=== PATIENT | male | born 1960 | race Two or more races ===

== ENCOUNTER 2020-11-16 16:18 | Inpatient (IN) | payer OTHER ==
[~2020-11-16] VITALS: Ht 177.8 cm; Wt 86.0 kg
[2020-11-16 18:34] LABS: Basophils # (auto) 0 10 ^3/uL (0-0.2); Basophils % (auto) 0.6 % (0.0-2.0); Eosinophils # (auto) 0.1 10 ^3/uL (0-0.8); Eosinophils % (auto) 1.6 % (0.0-7.0); Hematocrit 40.7 % (41.0-53.0); Lymphocytes # (auto) 0.9 10 ^3/uL (0.4-5.4); Lymphocytes % (auto) 19.1 % (10.0-50.0); Mean Corpuscular Hemoglobin 31.8 pg (28.0-32.0); Mean Corpuscular Hgb Conc. 34.5 g/dL (32.0-36.0); Mean Corpuscular Volume 92.3 fL (80.0-100.0); Monocytes # (auto) 0.6 10 ^3/uL (0-1.3); Monocytes % (auto) 12.1 % (0.0-12.0); Neutrophils # (auto) 3.2 10 ^3/uL (1.6-8.6); Neutrophils % (auto) 66.6 % (37.0-80.0); Nucleated Red Blood Cells % 0.3 %; Platelet Count (auto) 214 10^3/uL (140-450); Red Blood Cells 4.41 10^6/uL (4.5-5.90); Red Cell Distribution Width 13.6 % (11.8-14.3); White Blood Cell 4.8 10^3/uL (4.4-10.8)
[2020-11-16 18:57] LABS: Albumin 3.7 g/dL (3.4-5.0); Calcium 8.4 mg/dL (8.5-10.1); Potassium 4.3 mmol/L (3.5-5.1)
[2020-11-16 18:59] LABS: BUN/Creatinine Ratio 14.4
[2020-11-16 19:01] LABS: Bilirubin, Total 0.6 mg/dL (0.2-1.0); Total Protein 8.5 g/dL (6.4-8.2)
[2020-11-16] MEDS ORDERED: IOHEXOL 300 MG/ML 100ML BOTTLE IJ ONE (19:42)
[2020-11-16] MEDS ORDERED: VANCOMYCIN 1GM/250ML 250 ML IV ONE (23:00)
[2020-11-17] MEDS: methylPREDNISolone SOD SUCC 125 MG/2 ML VL IV SCH ×3 (01:02→21:08)
[2020-11-17 05:00] VITALS: BP 144/83
[2020-11-17 05:06] VITALS: BP 144/83
[2020-11-17] MEDS: HYDROcodone-ACET 10/325MG TAB PO PRN (06:53)
[2020-11-17 09:00] VITALS: BP 120/83
[2020-11-17] MEDS ORDERED: VANCOMYCIN PER PHARMACY 0 MG IV SCH (10:00)
[2020-11-17] MEDS ORDERED: VANCOMYCIN 1GM/250ML 250 ML IV SCH (10:00)
[2020-11-17] MEDS: NAPROXEN 500 MG TAB PO SCH ×2 (10:34→21:09)
[2020-11-17 13:00] VITALS: BP 121/73
[2020-11-17 13:19] LABS: INR 1.09 (0.9-1.15)
[2020-11-17 13:33] LABS: Partial Thromboplastin Time 25.6 sec (23.0-31.2)
[2020-11-17] MEDS: VANCOMYCIN 1GM/250ML 250 ML IV SCH (14:02)
[2020-11-17 14:29] LABS: Urine Bacteria NONE SEEN /hpf (None Seen); Urine Blood Negative /uL (Negative); Urine Specific Gravity 1.029 (1.001-1.035); Urine WBC 11 /hpf (0 - 3)
[2020-11-17 17:00] VITALS: BP 136/82
[2020-11-17] MEDS: TAMSULOSIN HYDROCHLORIDE 0.4 MG CAP PO SCH (19:23)
[2020-11-17] MEDS: ALUM & MAG HYDROX-SIMETH LIQ(MAALOX) 30 ML PO PRN (20:17)
[2020-11-17] MEDS: CIPROFLOXACIN HCL 500 MG TAB PO SCH (21:09)
[2020-11-17 22:00] VITALS: BP 140/83
[2020-11-18] MEDS: VANCOMYCIN 1GM/250ML 250 ML IV SCH ×3 (01:32→22:19)
[2020-11-18 05:00] VITALS: BP 133/85
[2020-11-18] MEDS: HYDROcodone-ACET 10/325MG TAB PO PRN ×2 (08:19→22:20)
[2020-11-18 09:00] VITALS: BP 119/71
[2020-11-18] MEDS: methylPREDNISolone SOD SUCC 125 MG/2 ML VL IV SCH (10:15)
[2020-11-18] MEDS: NAPROXEN 500 MG TAB PO SCH ×2 (10:16→21:32)
[2020-11-18] MEDS: CIPROFLOXACIN HCL 500 MG TAB PO SCH ×2 (10:16→21:32)
[2020-11-18] MEDS: PANTOPRAZOLE 40 MG TAB PO SCH (10:16)
[2020-11-18] MEDS: ENOXAPARIN SOD 40 MG/0.4 ML SYRINGE SC SCH (10:17)
[2020-11-18 13:00] VITALS: BP 105/68
[2020-11-18 17:17] VITALS: BP 129/57
[2020-11-18] MEDS: TAMSULOSIN HYDROCHLORIDE 0.4 MG CAP PO SCH (17:53)
[2020-11-18] MEDS: methylPREDNISolone SOD SUCC 40 MG/ML VL IV SCH (21:32)
[2020-11-18 22:00] VITALS: BP 120/66
[2020-11-19 05:00] VITALS: BP 114/70
[2020-11-19 07:12] LABS: Basophils # (auto) 0 10 ^3/uL (0-0.2); Basophils % (auto) 0.1 % (0.0-2.0); Eosinophils # (auto) 0 10 ^3/uL (0-0.8); Hematocrit 41.4 % (41.0-53.0); Hemoglobin 14.3 g/dL (13.5-17.5); Lymphocytes # (auto) 1.1 10 ^3/uL (0.4-5.4); Lymphocytes % (auto) 10.9 % (10.0-50.0); Mean Corpuscular Hemoglobin 32.5 pg (28.0-32.0); Mean Corpuscular Hgb Conc. 34.5 g/dL (32.0-36.0); Mean Corpuscular Volume 94.2 fL (80.0-100.0); Monocytes # (auto) 0.4 10 ^3/uL (0-1.3); Monocytes % (auto) 3.4 % (0.0-12.0); Neutrophils % (auto) 85.6 % (37.0-80.0); Platelet Count (auto) 252 10^3/uL (140-450); Red Cell Distribution Width 13.4 % (11.8-14.3); White Blood Cell 10.5 10^3/uL (4.4-10.8)
[2020-11-19] MEDS: VANCOMYCIN 1GM/250ML 250 ML IV SCH ×2 (08:30→17:28)
[2020-11-19 09:00] VITALS: BP 119/76
[2020-11-19] MEDS ORDERED: GADOTERATE MEG 10 MMOL/20ml INJ (0.5MMOL/ml) IV ONE (09:54)
[2020-11-19] MEDS: methylPREDNISolone SOD SUCC 40 MG/ML VL IV SCH ×2 (11:52→22:15)
[2020-11-19] MEDS: CIPROFLOXACIN HCL 500 MG TAB PO SCH ×2 (11:53→22:16)
[2020-11-19] MEDS: NAPROXEN 500 MG TAB PO SCH ×2 (11:53→22:16)
[2020-11-19] MEDS: PANTOPRAZOLE 40 MG TAB PO SCH (11:53)
[2020-11-19] MEDS: ENOXAPARIN SOD 40 MG/0.4 ML SYRINGE SC SCH (11:54)
[2020-11-19 12:23] VITALS: BP 111/80
[2020-11-19 16:24] VITALS: BP 132/79
[2020-11-19] MEDS: HYDROcodone-ACET 10/325MG TAB PO PRN ×2 (17:08→22:17)
[2020-11-19] MEDS: TAMSULOSIN HYDROCHLORIDE 0.4 MG CAP PO SCH (17:31)
[2020-11-19 22:00] VITALS: BP 136/84
[2020-11-20] VITALS (13 sets, daily range): BP systolic 120–141; BP diastolic 71–91
[2020-11-20] MEDS: VANCOMYCIN 1GM/250ML 250 ML IV SCH ×3 (04:51→23:42)
[2020-11-20] MEDS: ENOXAPARIN SOD 40 MG/0.4 ML SYRINGE SC SCH (10:00)
[2020-11-20] MEDS: methylPREDNISolone SOD SUCC 40 MG/ML VL IV SCH (10:13)
[2020-11-20] MEDS: CIPROFLOXACIN HCL 500 MG TAB PO SCH ×2 (10:13→23:41)
[2020-11-20] MEDS: DexAMETHasone SOD PHOS 4 MG/1ML SDV INJ IV SCH ×2 (10:13→23:41)
[2020-11-20] MEDS: PANTOPRAZOLE 40 MG TAB PO SCH (10:14)
[2020-11-20] MEDS: NAPROXEN 500 MG TAB PO SCH ×2 (10:14→23:41)
[2020-11-20] MEDS: ALUM & MAG HYDROX-SIMETH LIQ(MAALOX) 30 ML PO PRN (10:16)
[2020-11-20] MEDS: OXYCODONE W/ ACETAMINOPHEN 5/325MG TABLET PO PRN ×2 (13:54→19:31)
[2020-11-20] MEDS ORDERED: GELATIN 1 SPONGE SIZE 50 TOP ONE (14:50)
[2020-11-20] MEDS ORDERED: LIDOCAINE 2%HCL (LOCAL ANESTH.) INJ 20ML MDV ONE ×2 (14:50)
[2020-11-20] MEDS ORDERED: IOHEXOL 300 MG/ML 100ML BOTTLE IJ ONE (14:52)
[2020-11-20] MEDS ORDERED: fentaNYL CITRATE 100 MCG/2 ML VL IV ONE (15:00)
[2020-11-20] MEDS ORDERED: MIDAZOLAM HCL 1MG/1ML-2 ML VIAL IV ONE (15:00)
[2020-11-20] MEDS: TAMSULOSIN HYDROCHLORIDE 0.4 MG CAP PO SCH (17:33)
[2020-11-21] MEDS: OXYCODONE W/ ACETAMINOPHEN 5/325MG TABLET PO PRN ×4 (06:55→20:58)
[2020-11-21 08:28] VITALS: BP 133/84
[2020-11-21] MEDS: PANTOPRAZOLE 40 MG TAB PO SCH (10:11)
[2020-11-21] MEDS: DexAMETHasone SOD PHOS 4 MG/1ML SDV INJ IV SCH ×2 (10:11→21:52)
[2020-11-21] MEDS: CIPROFLOXACIN HCL 500 MG TAB PO SCH ×2 (10:11→21:52)
[2020-11-21] MEDS: NAPROXEN 500 MG TAB PO SCH ×2 (10:11→21:53)
[2020-11-21] MEDS: ENOXAPARIN SOD 40 MG/0.4 ML SYRINGE SC SCH (10:12)
[2020-11-21] MEDS: VANCOMYCIN 1GM/250ML 250 ML IV SCH ×2 (10:14→21:52)
[2020-11-21] MEDS ORDERED: GADOTERATE MEG 7.5 MMOL/15ml INJ (0.5MMOL/ml) IV ONE (11:30)
[2020-11-21 12:32] VITALS: BP 144/83
[2020-11-21 16:33] VITALS: BP 127/87
[2020-11-21] MEDS: TAMSULOSIN HYDROCHLORIDE 0.4 MG CAP PO SCH (18:02)
[2020-11-21 22:24] VITALS: BP 113/77
[2020-11-22] MEDS: VANCOMYCIN 1GM/250ML 250 ML IV SCH ×3 (00:05→16:32)
[2020-11-22] MEDS: DexAMETHasone SOD PHOS 4 MG/1ML SDV INJ IV SCH ×3 (00:05→22:15)
[2020-11-22] MEDS: OXYCODONE W/ ACETAMINOPHEN 5/325MG TABLET PO PRN ×3 (01:54→13:38)
[2020-11-22 05:24] VITALS: BP 112/72
[2020-11-22 08:41] VITALS: BP 114/74
[2020-11-22] MEDS: CIPROFLOXACIN HCL 500 MG TAB PO SCH ×2 (10:24→22:15)
[2020-11-22] MEDS: NAPROXEN 500 MG TAB PO SCH ×2 (10:24→22:15)
[2020-11-22] MEDS: PANTOPRAZOLE 40 MG TAB PO SCH (10:24)
[2020-11-22] MEDS: ENOXAPARIN SOD 40 MG/0.4 ML SYRINGE SC SCH (10:25)
[2020-11-22 12:35] VITALS: BP 129/82
[2020-11-22 17:00] VITALS: BP 128/81
[2020-11-22] MEDS: TAMSULOSIN HYDROCHLORIDE 0.4 MG CAP PO SCH (18:05)
[2020-11-22 22:00] VITALS: BP 120/76
[2020-11-23] MEDS: VANCOMYCIN 1GM/250ML 250 ML IV SCH ×3 (02:28→21:52)
[2020-11-23 05:00] VITALS: BP 116/69
[2020-11-23] MEDS: ENOXAPARIN SOD 40 MG/0.4 ML SYRINGE SC SCH (08:48)
[2020-11-23] MEDS: CIPROFLOXACIN HCL 500 MG TAB PO SCH ×2 (08:48→21:52)
[2020-11-23] MEDS: DexAMETHasone SOD PHOS 4 MG/1ML SDV INJ IV SCH ×2 (08:48→21:52)
[2020-11-23] MEDS: PANTOPRAZOLE 40 MG TAB PO SCH (08:49)
[2020-11-23] MEDS: NAPROXEN 500 MG TAB PO SCH ×2 (08:49→21:53)
[2020-11-23 09:00] VITALS: BP 133/75
[2020-11-23 10:56] LABS: Basophils # (auto) 0 10 ^3/uL (0-0.2); Basophils % (auto) 0.3 % (0.0-2.0); Eosinophils # (auto) 0 10 ^3/uL (0-0.8); Eosinophils % (auto) 0.1 % (0.0-7.0); Hematocrit 43.9 % (41.0-53.0); Hemoglobin 14.6 g/dL (13.5-17.5); Lymphocytes # (auto) 1.1 10 ^3/uL (0.4-5.4); Mean Corpuscular Hemoglobin 30.9 pg (28.0-32.0); Mean Corpuscular Hgb Conc. 33.2 g/dL (32.0-36.0); Mean Corpuscular Volume 92.9 fL (80.0-100.0); Monocytes # (auto) 0.7 10 ^3/uL (0-1.3); Monocytes % (auto) 5.9 % (0.0-12.0); Neutrophils % (auto) 84.7 % (37.0-80.0); Platelet Count (auto) 286 10^3/uL (140-450); Red Blood Cells 4.72 10^6/uL (4.5-5.90); Red Cell Distribution Width 13.4 % (11.8-14.3); White Blood Cell 11.8 10^3/uL (4.4-10.8)
[2020-11-23 11:15] LABS: Albumin 3.2 g/dL (3.4-5.0); Calcium 8.4 mg/dL (8.5-10.1); Potassium 3.8 mmol/L (3.5-5.1)
[2020-11-23 11:20] LABS: BUN/Creatinine Ratio 24.3; Bilirubin, Total 0.6 mg/dL (0.2-1.0)
[2020-11-23] MEDS: METHOCARBAMOL 500 MG TAB PO PRN (11:55)
[2020-11-23 13:00] VITALS: BP 122/74
[2020-11-23 17:00] VITALS: BP 133/80
[2020-11-23] MEDS: OXYCODONE W/ ACETAMINOPHEN 5/325MG TABLET PO PRN ×2 (17:56→23:53)
[2020-11-23] MEDS: TAMSULOSIN HYDROCHLORIDE 0.4 MG CAP PO SCH (17:56)
[2020-11-23 22:00] VITALS: BP 133/76
[2020-11-24 05:03] VITALS: BP 111/69
[2020-11-24] MEDS: VANCOMYCIN 1GM/250ML 250 ML IV SCH ×2 (08:19→17:41)
[2020-11-24 09:00] VITALS: BP 121/81
[2020-11-24] MEDS: DexAMETHasone SOD PHOS 4 MG/1ML SDV INJ IV SCH ×2 (09:25→21:51)
[2020-11-24] MEDS: CIPROFLOXACIN HCL 500 MG TAB PO SCH ×2 (09:25→21:51)
[2020-11-24] MEDS: NAPROXEN 500 MG TAB PO SCH ×2 (09:26→21:51)
[2020-11-24] MEDS: ENOXAPARIN SOD 40 MG/0.4 ML SYRINGE SC SCH (09:26)
[2020-11-24] MEDS: PANTOPRAZOLE 40 MG TAB PO SCH (09:26)
[2020-11-24] MEDS: OXYCODONE W/ ACETAMINOPHEN 5/325MG TABLET PO PRN ×3 (10:16→23:19)
[2020-11-24 13:00] VITALS: BP 123/76
[2020-11-24 17:00] VITALS: BP 115/73
[2020-11-24] MEDS: TAMSULOSIN HYDROCHLORIDE 0.4 MG CAP PO SCH (17:41)
[2020-11-24 22:00] VITALS: BP 123/74
[2020-11-25] MEDS: VANCOMYCIN 1GM/250ML 250 ML IV SCH ×3 (03:51→23:42)
[2020-11-25] MEDS: OXYCODONE W/ ACETAMINOPHEN 5/325MG TABLET PO PRN ×4 (03:52→20:15)
[2020-11-25 05:23] VITALS: BP 121/75
[2020-11-25] MEDS: ENOXAPARIN SOD 40 MG/0.4 ML SYRINGE SC SCH (08:03)
[2020-11-25] MEDS: PANTOPRAZOLE 40 MG TAB PO SCH (08:04)
[2020-11-25 09:00] VITALS: BP 124/84
[2020-11-25] MEDS: DexAMETHasone SOD PHOS 4 MG/1ML SDV INJ IV SCH ×2 (09:21→21:38)
[2020-11-25] MEDS: CIPROFLOXACIN HCL 500 MG TAB PO SCH ×2 (09:21→21:38)
[2020-11-25] MEDS: NAPROXEN 500 MG TAB PO SCH ×2 (09:21→21:39)
[2020-11-25] MEDS ORDERED: LACTULOSE 20Gm/30ML SOLN PO PRN (09:30)
[2020-11-25] MEDS: HYDROCORTISONE ACET 25 MG RECTAL SUPP PR SCH ×2 (10:31→21:39)
[2020-11-25 13:00] VITALS: BP 126/75
[2020-11-25 16:39] VITALS: BP 129/80
[2020-11-25] MEDS: TAMSULOSIN HYDROCHLORIDE 0.4 MG CAP PO SCH (18:51)
[2020-11-25 20:00] VITALS: BP 127/75
[2020-11-26 05:00] VITALS: BP 119/70
[2020-11-26 08:47] VITALS: BP 117/75
[2020-11-26] MEDS: VANCOMYCIN 1GM/250ML 250 ML IV SCH ×2 (10:23→21:28)
[2020-11-26] MEDS: DexAMETHasone SOD PHOS 4 MG/1ML SDV INJ IV SCH ×2 (10:24→21:29)
[2020-11-26] MEDS: CIPROFLOXACIN HCL 500 MG TAB PO SCH ×2 (10:24→21:29)
[2020-11-26] MEDS: PANTOPRAZOLE 40 MG TAB PO SCH (10:24)
[2020-11-26] MEDS: HYDROCORTISONE ACET 25 MG RECTAL SUPP PR SCH ×2 (10:24→21:30)
[2020-11-26] MEDS: ENOXAPARIN SOD 40 MG/0.4 ML SYRINGE SC SCH (10:24)
[2020-11-26] MEDS: NAPROXEN 500 MG TAB PO SCH ×2 (10:25→21:30)
[2020-11-26 13:00] VITALS: BP 110/67
[2020-11-26] MEDS: METHOCARBAMOL 500 MG TAB PO PRN (14:16)
[2020-11-26] MEDS: OXYCODONE W/ ACETAMINOPHEN 5/325MG TABLET PO PRN (14:17)
[2020-11-26 16:58] VITALS: BP 122/80
[2020-11-26] MEDS: TAMSULOSIN HYDROCHLORIDE 0.4 MG CAP PO SCH (17:50)
[2020-11-26 20:00] VITALS: BP 113/73
[2020-11-26 22:00] VITALS: BP 113/73
[2020-11-27 04:42] VITALS: BP 104/68
[2020-11-27] MEDS: OXYCODONE W/ ACETAMINOPHEN 5/325MG TABLET PO PRN ×3 (06:26→19:57)
[2020-11-27] MEDS: VANCOMYCIN 1GM/250ML 250 ML IV SCH ×2 (06:26→16:25)
[2020-11-27 06:59] LABS: Basophils # (auto) 0 10 ^3/uL (0-0.2); Basophils % (auto) 0.1 % (0.0-2.0); Eosinophils # (auto) 0 10 ^3/uL (0-0.8); Eosinophils % (auto) 0.1 % (0.0-7.0); Hematocrit 39.2 % (41.0-53.0); Hemoglobin 13.6 g/dL (13.5-17.5); Lymphocytes # (auto) 1.1 10 ^3/uL (0.4-5.4); Mean Corpuscular Hemoglobin 32.3 pg (28.0-32.0); Mean Corpuscular Hgb Conc. 34.7 g/dL (32.0-36.0); Mean Corpuscular Volume 93.1 fL (80.0-100.0); Monocytes # (auto) 0.6 10 ^3/uL (0-1.3); Monocytes % (auto) 7.7 % (0.0-12.0); Neutrophils # (auto) 6.2 10 ^3/uL (1.6-8.6); Neutrophils % (auto) 78.1 % (37.0-80.0); Platelet Count (auto) 227 10^3/uL (140-450); Red Blood Cells 4.21 10^6/uL (4.5-5.90); Red Cell Distribution Width 13.7 % (11.8-14.3); White Blood Cell 7.9 10^3/uL (4.4-10.8)
[2020-11-27 07:10] LABS: BUN/Creatinine Ratio 27.3; Calcium 8.2 mg/dL (8.5-10.1); Potassium 4.1 mmol/L (3.5-5.1)
[2020-11-27 08:48] VITALS: BP 135/82
[2020-11-27] MEDS: CIPROFLOXACIN HCL 500 MG TAB PO SCH ×2 (09:41→22:41)
[2020-11-27] MEDS: NAPROXEN 500 MG TAB PO SCH ×2 (09:41→22:41)
[2020-11-27] MEDS: DexAMETHasone SOD PHOS 4 MG/1ML SDV INJ IV SCH ×2 (09:41→22:41)
[2020-11-27] MEDS: ENOXAPARIN SOD 40 MG/0.4 ML SYRINGE SC SCH (09:42)
[2020-11-27] MEDS: PANTOPRAZOLE 40 MG TAB PO SCH (09:42)
[2020-11-27] MEDS: HYDROCORTISONE ACET 25 MG RECTAL SUPP PR SCH ×2 (10:00→22:40)
[2020-11-27 13:00] VITALS: BP 123/80
[2020-11-27] MEDS: TAMSULOSIN HYDROCHLORIDE 0.4 MG CAP PO SCH (16:26)
[2020-11-27 16:57] VITALS: BP 141/60
[2020-11-27 22:00] VITALS: BP 133/75
[2020-11-28] MEDS: VANCOMYCIN 1GM/250ML 250 ML IV SCH ×3 (02:13→22:08)
[2020-11-28] MEDS: OXYCODONE W/ ACETAMINOPHEN 5/325MG TABLET PO PRN ×3 (02:32→17:18)
[2020-11-28 05:00] VITALS: BP 116/70
[2020-11-28] MEDS: CIPROFLOXACIN HCL 500 MG TAB PO SCH ×2 (08:57→22:08)
[2020-11-28] MEDS: ENOXAPARIN SOD 40 MG/0.4 ML SYRINGE SC SCH (08:57)
[2020-11-28] MEDS: HYDROCORTISONE ACET 25 MG RECTAL SUPP PR SCH ×2 (08:58→22:09)
[2020-11-28] MEDS: DexAMETHasone SOD PHOS 4 MG/1ML SDV INJ IV SCH ×2 (08:58→22:08)
[2020-11-28] MEDS: PANTOPRAZOLE 40 MG TAB PO SCH (08:58)
[2020-11-28] MEDS: NAPROXEN 500 MG TAB PO SCH ×2 (08:58→22:08)
[2020-11-28 09:00] VITALS: BP 116/71
[2020-11-28] MEDS ORDERED: OMNIPAQUE ORAL SOLN 500ml 12mg/ml PO ONE (10:34)
[2020-11-28 13:00] VITALS: BP 113/75
[2020-11-28] MEDS ORDERED: IOHEXOL 300 MG/ML 100ML BOTTLE IJ ONE (13:00)
[2020-11-28 16:46] VITALS: BP 121/80
[2020-11-28] MEDS: TAMSULOSIN HYDROCHLORIDE 0.4 MG CAP PO SCH (17:18)
[2020-11-28 21:19] VITALS: BP 146/75
[2020-11-28] MEDS: METHOCARBAMOL 500 MG TAB PO PRN (22:40)
[2020-11-29] MEDS: OXYCODONE W/ ACETAMINOPHEN 5/325MG TABLET PO PRN ×4 (04:49→17:59)
[2020-11-29 05:12] VITALS: BP 118/72
[2020-11-29] MEDS: VANCOMYCIN 1GM/250ML 250 ML IV SCH ×2 (08:00→17:59)
[2020-11-29] MEDS: DexAMETHasone SOD PHOS 4 MG/1ML SDV INJ IV SCH ×2 (08:33→22:02)
[2020-11-29] MEDS: CIPROFLOXACIN HCL 500 MG TAB PO SCH ×2 (08:33→22:02)
[2020-11-29] MEDS: NAPROXEN 500 MG TAB PO SCH ×2 (08:34→22:03)
[2020-11-29] MEDS: ENOXAPARIN SOD 40 MG/0.4 ML SYRINGE SC SCH (08:34)
[2020-11-29] MEDS: HYDROCORTISONE ACET 25 MG RECTAL SUPP PR SCH ×3 (08:34→22:00)
[2020-11-29 08:49] VITALS: BP 123/77
[2020-11-29 10:05] LABS: Basophils # (auto) 0 10 ^3/uL (0-0.2); Eosinophils # (auto) 0 10 ^3/uL (0-0.8); Hematocrit 40.2 % (41.0-53.0); Hemoglobin 13.6 g/dL (13.5-17.5); Lymphocytes % (auto) 10.7 % (10.0-50.0); Mean Corpuscular Hemoglobin 31.6 pg (28.0-32.0); Mean Corpuscular Hgb Conc. 33.9 g/dL (32.0-36.0); Mean Corpuscular Volume 93.4 fL (80.0-100.0); Monocytes # (auto) 0.4 10 ^3/uL (0-1.3); Monocytes % (auto) 4.4 % (0.0-12.0); Neutrophils # (auto) 7.7 10 ^3/uL (1.6-8.6); Neutrophils % (auto) 84.9 % (37.0-80.0); Platelet Count (auto) 230 10^3/uL (140-450); Red Blood Cells 4.31 10^6/uL (4.5-5.90); White Blood Cell 9.1 10^3/uL (4.4-10.8)
[2020-11-29 10:13] LABS: INR 1.06 (0.9-1.15); Partial Thromboplastin Time 25.5 sec (23.0-31.2); Potassium 4.1 mmol/L (3.5-5.1)
[2020-11-29 10:20] LABS: Albumin 3.1 g/dL (3.4-5.0); BUN/Creatinine Ratio 27.8; Bilirubin, Total 0.7 mg/dL (0.2-1.0); Total Protein 6.3 g/dL (6.4-8.2)
[2020-11-29 13:00] VITALS: BP 121/80
[2020-11-29 17:00] VITALS: BP 111/71
[2020-11-29] MEDS: TAMSULOSIN HYDROCHLORIDE 0.4 MG CAP PO SCH (17:59)
[2020-11-29 21:29] VITALS: BP 112/70
[2020-11-29] MEDS ORDERED: GOLYTELY 4L KIT PO ONE (21:45)
[2020-11-30] MEDS: OXYCODONE W/ ACETAMINOPHEN 5/325MG TABLET PO PRN (00:01)
[2020-11-30] MEDS: VANCOMYCIN 1GM/250ML 250 ML IV SCH ×3 (03:44→23:50)
[2020-11-30 05:49] VITALS: BP 117/71
[2020-11-30] MEDS ORDERED: diphenhdrAMINE HCL 50 MG/1 ML VL ONE (08:03)
[2020-11-30] MEDS ORDERED: SODIUM CHLORIDE LOCK 10 ML ONE (08:03)
[2020-11-30] MEDS ORDERED: LIDOCAINE VISCOUS 2% 15ML UD ONE (08:03)
[2020-11-30] MEDS: fentaNYL CITRATE 100 MCG/2 ML VL ONE ×2 (08:18→08:21)
[2020-11-30] MEDS: MIDAZOLAM HCL 5 MG/ML-1ML VIAL ONE ×2 (08:18→08:21)
[2020-11-30] MEDS: HYDROCORTISONE ACET 25 MG RECTAL SUPP PR SCH ×2 (10:00→21:40)
[2020-11-30] MEDS: DexAMETHasone SOD PHOS 4 MG/1ML SDV INJ IV SCH ×2 (10:00→21:40)
[2020-11-30] MEDS: CIPROFLOXACIN HCL 500 MG TAB PO SCH ×2 (10:00→21:40)
[2020-11-30] MEDS: NAPROXEN 500 MG TAB PO SCH ×2 (10:00→21:40)
[2020-11-30] MEDS: ENOXAPARIN SOD 40 MG/0.4 ML SYRINGE SC SCH (10:01)
[2020-11-30 13:00] VITALS: BP 128/79
[2020-11-30 17:00] VITALS: BP 123/78
[2020-11-30] MEDS: TAMSULOSIN HYDROCHLORIDE 0.4 MG CAP PO SCH (17:38)
[2020-11-30 22:00] VITALS: BP 112/69
[2020-12-01] MEDS: OXYCODONE W/ ACETAMINOPHEN 5/325MG TABLET PO PRN ×3 (02:19→18:39)
[2020-12-01 05:00] VITALS: BP 116/73
[2020-12-01] MEDS: DexAMETHasone SOD PHOS 4 MG/1ML SDV INJ IV SCH ×2 (09:27→22:12)
[2020-12-01] MEDS: VANCOMYCIN 1GM/250ML 250 ML IV SCH (09:27)
[2020-12-01] MEDS: CIPROFLOXACIN HCL 500 MG TAB PO SCH (09:27)
[2020-12-01] MEDS: HYDROCORTISONE ACET 25 MG RECTAL SUPP PR SCH ×2 (09:28→22:11)
[2020-12-01] MEDS: NAPROXEN 500 MG TAB PO SCH ×2 (09:28→22:12)
[2020-12-01] MEDS: ENOXAPARIN SOD 40 MG/0.4 ML SYRINGE SC SCH (09:28)
[2020-12-01 10:03] VITALS: BP 129/73
[2020-12-01 13:00] VITALS: BP 118/73
[2020-12-01 17:00] VITALS: BP 117/77
[2020-12-01] MEDS: TAMSULOSIN HYDROCHLORIDE 0.4 MG CAP PO SCH (18:38)
[2020-12-01 22:00] VITALS: BP 122/68
[2020-12-02 05:00] VITALS: BP 111/70
[2020-12-02] MEDS: OXYCODONE W/ ACETAMINOPHEN 5/325MG TABLET PO PRN ×3 (05:01→18:05)
[2020-12-02 09:00] VITALS: BP 129/78
[2020-12-02] MEDS: DexAMETHasone SOD PHOS 4 MG/1ML SDV INJ IV SCH ×2 (09:17→22:47)
[2020-12-02] MEDS: NAPROXEN 500 MG TAB PO SCH ×2 (09:17→22:49)
[2020-12-02] MEDS: HYDROCORTISONE ACET 25 MG RECTAL SUPP PR SCH ×2 (09:18→22:49)
[2020-12-02] MEDS: ENOXAPARIN SOD 40 MG/0.4 ML SYRINGE SC SCH (09:18)
[2020-12-02 13:00] VITALS: BP 124/84
[2020-12-02 17:00] VITALS: BP 128/75
[2020-12-02] MEDS: TAMSULOSIN HYDROCHLORIDE 0.4 MG CAP PO SCH (18:05)
[2020-12-02 22:29] VITALS: BP 142/90
[2020-12-03] MEDS: OXYCODONE W/ ACETAMINOPHEN 5/325MG TABLET PO PRN ×2 (04:13→10:04)
[2020-12-03 05:02] VITALS: BP 107/62
[2020-12-03 08:00] VITALS: BP 119/72
[2020-12-03] MEDS: ENOXAPARIN SOD 40 MG/0.4 ML SYRINGE SC SCH (08:44)
[2020-12-03] MEDS: NAPROXEN 500 MG TAB PO SCH (08:45)
[2020-12-03] MEDS: HYDROCORTISONE ACET 25 MG RECTAL SUPP PR SCH ×2 (08:45→10:04)
[2020-12-03] MEDS: DexAMETHasone SOD PHOS 4 MG/1ML SDV INJ IV SCH (08:45)
[2020-12-03 12:00] VITALS: BP 131/61
[2020-12-03] MEDS ORDERED: TAM04C PO (12:43)
[2020-12-03] MEDS ORDERED: NAP500T PO (12:43)
[2020-12-03] MEDS ORDERED: METH500T22 PO (12:43)
[2020-12-03] MEDS ORDERED: LACT10SO3 PO (12:43)
[2020-12-03 13:08] VITALS: BP 119/72
== END 2020-12-03 16:10 | DRG 727 ==
LOC: ER 16:18 → EEVIPCON 16:18 → OVERFLOW 22:48 → WEST WING 11-17 04:43
PROVIDERS: ADMIT Internal Medicine; ATTEND Internal Medicine
PROC: 0FB23ZX Excision of Left Lobe Liver, Percutaneous Approach, Diagnostic (ICD-10-PCS; 2020-11-20)
PROC: B54MZZA Ultrasonography of Right Upper Extremity Veins, Guidance (ICD-10-PCS; principal; 2020-11-21)
PROC: 05H933Z Insertion of Infusion Device into Right Brachial Vein, Percutaneous Approach (ICD-10-PCS; 2020-11-21)
PROC: 0DB58ZX Excision of Esophagus, Via Natural or Artificial Opening Endoscopic, Diagnostic (ICD-10-PCS; 2020-11-30)
PROC: 0DB78ZX Excision of Stomach, Pylorus, Via Natural or Artificial Opening Endoscopic, Diagnostic (ICD-10-PCS; 2020-11-30)
PROC: 0DB68ZX Excision of Stomach, Via Natural or Artificial Opening Endoscopic, Diagnostic (ICD-10-PCS; 2020-11-30)
PROC: 0DBM8ZZ Excision of Descending Colon, Via Natural or Artificial Opening Endoscopic (ICD-10-PCS; 2020-11-30)
PROC: 0DBK8ZX Excision of Ascending Colon, Via Natural or Artificial Opening Endoscopic, Diagnostic (ICD-10-PCS; 2020-11-30)
DX: N45.3 Epididymo-orchitis (principal); K29.71 Gastritis, unspecified, with bleeding; C22.0 Liver cell carcinoma; C79.51 Secondary malignant neoplasm of bone; K74.60 Unspecified cirrhosis of liver; N40.1 Benign prostatic hyperplasia with lower urinary tract symptoms; N43.3 Hydrocele, unspecified; K64.8 Other hemorrhoids; B19.20 Unspecified viral hepatitis C without hepatic coma; F10.21 Alcohol dependence, in remission; G89.29 Other chronic pain; K59.00 Constipation, unspecified; M51.16 Intervertebral disc disorders with radiculopathy, lumbar region; R33.8 Other retention of urine; Z80.1 Family history of malignant neoplasm of trachea, bronchus and lung; Z85.05 Personal history of malignant neoplasm of liver; Z87.891 Personal history of nicotine dependence; J45.909 Unspecified asthma, uncomplicated; R77.2 Abnormality of alphafetoprotein; Z20.822 Contact with and (suspected) exposure to COVID-19; K63.5 Polyp of colon
CPT/HCPCS: 10022; 36415; 43239; 45380; 70553; 71260; 72148; 74150; 74177; 74178; 74183; 76870; 77012; 78306; 80048; 80053; 80202; 81001; 82105; 82378; 82565; 83615; 84154; 84702; 85025; 85610; 85730; 86301; 87086; 87426; 96365; G0378; J1100; J2250

== ENCOUNTER 2020-12-18 15:49 | Inpatient (IN) | payer OTHER ==
[~2020-12-18] VITALS: Ht 180.3 cm; Wt 82.6 kg
[~2020-12-18 15:49] MED LIST: LACT10SO3 PO; METH500T22 PO; NAP500T PO; TAM04C PO
[2020-12-18] MEDS ORDERED: SODIUM CHLORIDE 0.9% 1,000 ML IVB ONE (20:30)
[2020-12-18] MEDS ORDERED: ACETAMINOPHEN 325 MG TAB PO ONE (20:30)
[2020-12-18 20:39] LABS: Urine Bacteria FEW /hpf (None Seen); Urine Blood 2+ /uL (Negative); Urine Specific Gravity 1.021 (1.001-1.035); Urine WBC 160 /hpf (0 - 3); Urine WBC Clumps PRESENT /hpf (None Seen)
[2020-12-18] MEDS ORDERED: cefTRIAXone 1GM/50ML D5W 50 ML IV ONE (21:15)
[2020-12-18 21:56] LABS: Basophils # (auto) 0 10 ^3/uL (0-0.2); Basophils % (auto) 0.3 % (0.0-2.0); Eosinophils # (auto) 0 10 ^3/uL (0-0.8); Eosinophils % (auto) 0.8 % (0.0-7.0); Hematocrit 41.4 % (41.0-53.0); Hemoglobin 14.1 g/dL (13.5-17.5); Lymphocytes # (auto) 1.3 10 ^3/uL (0.4-5.4); Lymphocytes % (auto) 25.5 % (10.0-50.0); Mean Corpuscular Hemoglobin 31.5 pg (28.0-32.0); Mean Corpuscular Volume 92.7 fL (80.0-100.0); Monocytes # (auto) 0.3 10 ^3/uL (0-1.3); Monocytes % (auto) 6.4 % (0.0-12.0); Neutrophils # (auto) 3.5 10 ^3/uL (1.6-8.6); Platelet Count (auto) 177 10^3/uL (140-450); Red Blood Cells 4.47 10^6/uL (4.5-5.90); Red Cell Distribution Width 14.1 % (11.8-14.3); White Blood Cell 5.3 10^3/uL (4.4-10.8)
[2020-12-18 22:10] LABS: Partial Thromboplastin Time 20.8 sec (23.0-31.2)
[2020-12-18 22:13] LABS: Albumin 3.3 g/dL (3.4-5.0); Calcium 8.5 mg/dL (8.5-10.1); Magnesium 2.2 mg/dL (1.6-2.6)
[2020-12-18 22:17] LABS: BUN/Creatinine Ratio 14.4; Bilirubin, Total 0.8 mg/dL (0.2-1.0); Total Protein 7.2 g/dL (6.4-8.2)
[2020-12-18] MEDS ORDERED: MORPHINE SULF INJ 2 MG/ML SYRINGE 1ML IV PRN (23:00)
[2020-12-18] MEDS ORDERED: NITROGLYCERIN 0.4 MG SL TAB SL PRN (23:00)
[2020-12-18] MEDS ORDERED: ONDANSETRON HCL 4 MG/2 ML VIAL IV PRN (23:00)
[2020-12-19] MEDS: D5W/SOD CHL 0.45% 1,000 ML IV SCH ×3 (00:39→19:44)
[2020-12-19 02:46] VITALS: BP 130/59
[2020-12-19] MEDS: OXYCODONE W/ ACETAMINOPHEN 5/325MG TABLET PO PRN ×4 (03:28→19:45)
[2020-12-19 05:00] VITALS: BP 125/79
[2020-12-19] MEDS: PIPERACILLIN-TAZOB 3.375GM 100 ML IV SCH ×3 (05:33→22:17)
[2020-12-19 08:48] VITALS: BP 111/80
[2020-12-19] MEDS: DOCUSATE SOD 100 MG CAP PO SCH ×2 (10:00→22:26)
[2020-12-19] MEDS: DULoxetine HCL 30 MG CAP PO SCH (10:10)
[2020-12-19] MEDS: TAMSULOSIN HYDROCHLORIDE 0.4 MG CAP PO SCH (10:10)
[2020-12-19] MEDS: ENOXAPARIN SOD 40 MG/0.4 ML SYRINGE SC SCH (10:11)
[2020-12-19 12:22] VITALS: BP 110/68
[2020-12-19 16:35] VITALS: BP 110/64
[2020-12-19 21:06] VITALS: BP 111/64
[2020-12-20 05:09] VITALS: BP 100/67
[2020-12-20] MEDS: D5W/SOD CHL 0.45% 1,000 ML IV SCH ×2 (05:39→15:00)
[2020-12-20] MEDS: PIPERACILLIN-TAZOB 3.375GM 100 ML IV SCH (06:04)
[2020-12-20] MEDS: OXYCODONE W/ ACETAMINOPHEN 5/325MG TABLET PO PRN ×4 (06:48→22:36)
[2020-12-20 08:00] VITALS: BP 126/73
[2020-12-20] MEDS: ENOXAPARIN SOD 40 MG/0.4 ML SYRINGE SC SCH (10:39)
[2020-12-20] MEDS: DULoxetine HCL 30 MG CAP PO SCH (10:39)
[2020-12-20] MEDS: DOCUSATE SOD 100 MG CAP PO SCH ×2 (10:39→22:44)
[2020-12-20] MEDS: TAMSULOSIN HYDROCHLORIDE 0.4 MG CAP PO SCH (10:39)
[2020-12-20 12:00] VITALS: BP 115/70
[2020-12-20] MEDS: MEROPENEM 1GM IVPB 100 ML IV SCH ×2 (14:00→22:43)
[2020-12-20 16:00] VITALS: BP 123/80
[2020-12-20 22:00] VITALS: BP 105/75
[2020-12-21] MEDS: D5W/SOD CHL 0.45% 1,000 ML IV SCH ×3 (01:00→21:21)
[2020-12-21 05:00] VITALS: BP 127/80
[2020-12-21] MEDS: OXYCODONE W/ ACETAMINOPHEN 5/325MG TABLET PO PRN ×4 (06:03→21:22)
[2020-12-21] MEDS: MEROPENEM 1GM IVPB 100 ML IV SCH ×3 (06:03→21:21)
[2020-12-21 08:49] VITALS: BP 114/77
[2020-12-21] MEDS: DULoxetine HCL 30 MG CAP PO SCH (09:29)
[2020-12-21] MEDS: DOCUSATE SOD 100 MG CAP PO SCH ×2 (09:29→21:22)
[2020-12-21] MEDS: TAMSULOSIN HYDROCHLORIDE 0.4 MG CAP PO SCH (09:29)
[2020-12-21] MEDS: ENOXAPARIN SOD 40 MG/0.4 ML SYRINGE SC SCH (09:30)
[2020-12-21 13:00] VITALS: BP 117/76
[2020-12-21 16:20] VITALS: BP 103/74
[2020-12-21 22:00] VITALS: BP 120/83
[2020-12-22 05:00] VITALS: BP 125/73
[2020-12-22] MEDS: D5W/SOD CHL 0.45% 1,000 ML IV SCH ×2 (06:07→17:37)
[2020-12-22] MEDS: MEROPENEM 1GM IVPB 100 ML IV SCH ×3 (06:07→21:56)
[2020-12-22] MEDS: OXYCODONE W/ ACETAMINOPHEN 5/325MG TABLET PO PRN ×4 (06:10→20:32)
[2020-12-22 08:00] VITALS: BP 121/83
[2020-12-22 09:00] VITALS: BP 121/83
[2020-12-22] MEDS: DOCUSATE SOD 100 MG CAP PO SCH ×3 (10:00→22:00)
[2020-12-22] MEDS: DULoxetine HCL 30 MG CAP PO SCH (10:26)
[2020-12-22] MEDS: ENOXAPARIN SOD 40 MG/0.4 ML SYRINGE SC SCH (10:27)
[2020-12-22] MEDS: TAMSULOSIN HYDROCHLORIDE 0.4 MG CAP PO SCH (10:27)
[2020-12-22 13:00] VITALS: BP 127/76
[2020-12-22 17:02] VITALS: BP 131/91
[2020-12-22 22:15] VITALS: BP 107/87
[2020-12-23] MEDS: D5W/SOD CHL 0.45% 1,000 ML IV SCH (03:26)
[2020-12-23] MEDS: OXYCODONE W/ ACETAMINOPHEN 5/325MG TABLET PO PRN ×5 (04:14→22:36)
[2020-12-23 05:01] VITALS: BP 136/84
[2020-12-23] MEDS: MEROPENEM 1GM IVPB 100 ML IV SCH ×3 (05:54→22:35)
[2020-12-23 09:00] VITALS: BP 131/79
[2020-12-23] MEDS: DOCUSATE SOD 100 MG CAP PO SCH ×2 (09:31→22:35)
[2020-12-23] MEDS: TAMSULOSIN HYDROCHLORIDE 0.4 MG CAP PO SCH (09:32)
[2020-12-23] MEDS: ENOXAPARIN SOD 40 MG/0.4 ML SYRINGE SC SCH (09:32)
[2020-12-23] MEDS: DULoxetine HCL 30 MG CAP PO SCH (09:32)
[2020-12-23 13:00] VITALS: BP 123/79
[2020-12-23 17:00] VITALS: BP 132/70
[2020-12-23 21:50] VITALS: BP 117/75
[2020-12-24] MEDS: OXYCODONE W/ ACETAMINOPHEN 5/325MG TABLET PO PRN ×5 (03:54→21:53)
[2020-12-24 04:34] VITALS: BP 121/75
[2020-12-24 05:42] LABS: Basophils # (auto) 0 10 ^3/uL (0-0.2); Basophils % (auto) 0.6 % (0.0-2.0); Eosinophils # (auto) 0.1 10 ^3/uL (0-0.8); Eosinophils % (auto) 2.6 % (0.0-7.0); Hemoglobin 13.3 g/dL (13.5-17.5); Lymphocytes # (auto) 1.1 10 ^3/uL (0.4-5.4); Lymphocytes % (auto) 38.7 % (10.0-50.0); Mean Corpuscular Hemoglobin 32.6 pg (28.0-32.0); Mean Corpuscular Hgb Conc. 35.1 g/dL (32.0-36.0); Monocytes # (auto) 0.4 10 ^3/uL (0-1.3); Monocytes % (auto) 12.6 % (0.0-12.0); Neutrophils # (auto) 1.3 10 ^3/uL (1.6-8.6); Neutrophils % (auto) 45.5 % (37.0-80.0); Nucleated Red Blood Cells % 0.1 %; Platelet Count (auto) 214 10^3/uL (140-450); Red Blood Cells 4.08 10^6/uL (4.5-5.90); Red Cell Distribution Width 13.7 % (11.8-14.3); White Blood Cell 2.9 10^3/uL (4.4-10.8)
[2020-12-24] MEDS: MEROPENEM 1GM IVPB 100 ML IV SCH ×3 (05:49→21:53)
[2020-12-24 06:06] LABS: Albumin 2.8 g/dL (3.4-5.0)
[2020-12-24 06:08] LABS: BUN/Creatinine Ratio 15.9
[2020-12-24 06:11] LABS: Bilirubin, Total 0.4 mg/dL (0.2-1.0); Total Protein 6.4 g/dL (6.4-8.2)
[2020-12-24] MEDS: DOCUSATE SOD 100 MG CAP PO SCH ×2 (08:59→21:53)
[2020-12-24 09:00] VITALS: BP 142/92
[2020-12-24] MEDS: DULoxetine HCL 30 MG CAP PO SCH (09:02)
[2020-12-24] MEDS: TAMSULOSIN HYDROCHLORIDE 0.4 MG CAP PO SCH (09:04)
[2020-12-24] MEDS: ENOXAPARIN SOD 40 MG/0.4 ML SYRINGE SC SCH (09:06)
[2020-12-24 13:00] VITALS: BP 124/82
[2020-12-24] MEDS: NAPROXEN 500 MG TAB PO PRN (14:35)
[2020-12-24 17:00] VITALS: BP 129/79
[2020-12-24 22:55] VITALS: BP 146/91
[2020-12-25 05:28] VITALS: BP 129/84
[2020-12-25] MEDS: OXYCODONE W/ ACETAMINOPHEN 5/325MG TABLET PO PRN ×4 (06:11→22:01)
[2020-12-25] MEDS: MEROPENEM 1GM IVPB 100 ML IV SCH ×3 (06:11→22:00)
[2020-12-25 08:00] VITALS: BP 128/79
[2020-12-25 09:00] VITALS: BP 128/79
[2020-12-25] MEDS: DOCUSATE SOD 100 MG CAP PO SCH ×3 (09:42→22:00)
[2020-12-25] MEDS: ENOXAPARIN SOD 40 MG/0.4 ML SYRINGE SC SCH (09:43)
[2020-12-25] MEDS: TAMSULOSIN HYDROCHLORIDE 0.4 MG CAP PO SCH (09:43)
[2020-12-25] MEDS: DULoxetine HCL 30 MG CAP PO SCH (09:43)
[2020-12-25 13:00] VITALS: BP 128/86
[2020-12-25 16:45] VITALS: BP 123/58
[2020-12-25] MEDS: NAPROXEN 500 MG TAB PO PRN (19:50)
[2020-12-25 22:33] VITALS: BP 116/74
[2020-12-26] MEDS: OXYCODONE W/ ACETAMINOPHEN 5/325MG TABLET PO PRN ×4 (01:45→18:25)
[2020-12-26 05:00] VITALS: BP_SYST 108; BP_SYST 141; BP_DIAS 66; BP_DIAS 71
[2020-12-26] MEDS: MEROPENEM 1GM IVPB 100 ML IV SCH ×3 (05:48→21:09)
[2020-12-26 09:00] VITALS: BP 120/83
[2020-12-26] MEDS: DULoxetine HCL 30 MG CAP PO SCH (09:23)
[2020-12-26] MEDS: TAMSULOSIN HYDROCHLORIDE 0.4 MG CAP PO SCH (09:23)
[2020-12-26] MEDS: ENOXAPARIN SOD 40 MG/0.4 ML SYRINGE SC SCH (09:24)
[2020-12-26] MEDS: NAPROXEN 500 MG TAB PO PRN ×2 (09:25→21:09)
[2020-12-26] MEDS: DOCUSATE SOD 100 MG CAP PO SCH ×2 (09:29→21:09)
[2020-12-26 13:00] VITALS: BP 127/79
[2020-12-26 16:36] VITALS: BP 105/74
[2020-12-26 22:00] VITALS: BP 115/70
[2020-12-27] MEDS: OXYCODONE W/ ACETAMINOPHEN 5/325MG TABLET PO PRN ×4 (02:59→21:42)
[2020-12-27 05:00] VITALS: BP 103/65
[2020-12-27] MEDS: MEROPENEM 1GM IVPB 100 ML IV SCH ×3 (05:39→21:38)
[2020-12-27] MEDS: DOCUSATE SOD 100 MG CAP PO SCH ×2 (08:26→21:50)
[2020-12-27] MEDS: TAMSULOSIN HYDROCHLORIDE 0.4 MG CAP PO SCH (08:31)
[2020-12-27] MEDS: DULoxetine HCL 30 MG CAP PO SCH (08:32)
[2020-12-27] MEDS: ENOXAPARIN SOD 40 MG/0.4 ML SYRINGE SC SCH (08:32)
[2020-12-27] MEDS: FINASTERIDE 5 MG TAB PO SCH (08:32)
[2020-12-27 08:51] VITALS: BP 104/64
[2020-12-27] MEDS: NAPROXEN 500 MG TAB PO PRN (10:09)
[2020-12-27 12:47] VITALS: BP 117/78
[2020-12-27 16:46] VITALS: BP 111/67
[2020-12-27 22:00] VITALS: BP 114/73
[2020-12-28 05:00] VITALS: BP 99/64
[2020-12-28] MEDS: MEROPENEM 1GM IVPB 100 ML IV SCH ×3 (05:17→20:25)
[2020-12-28 09:10] VITALS: BP 112/73
[2020-12-28] MEDS: TAMSULOSIN HYDROCHLORIDE 0.4 MG CAP PO SCH (09:59)
[2020-12-28] MEDS: OXYCODONE W/ ACETAMINOPHEN 5/325MG TABLET PO PRN ×3 (10:00→20:39)
[2020-12-28] MEDS: DOCUSATE SOD 100 MG CAP PO SCH ×2 (10:00→20:25)
[2020-12-28] MEDS: DULoxetine HCL 30 MG CAP PO SCH (10:00)
[2020-12-28] MEDS: FINASTERIDE 5 MG TAB PO SCH (10:00)
[2020-12-28] MEDS: NAPROXEN 500 MG TAB PO PRN (10:01)
[2020-12-28 12:35] VITALS: BP 116/73
[2020-12-28 16:17] VITALS: BP 112/70
[2020-12-28 22:00] VITALS: BP 118/70
[2020-12-29 05:00] VITALS: BP 115/76
[2020-12-29] MEDS: MEROPENEM 1GM IVPB 100 ML IV SCH (05:53)
[2020-12-29] MEDS: OXYCODONE W/ ACETAMINOPHEN 5/325MG TABLET PO PRN (08:34)
[2020-12-29 08:35] VITALS: BP 112/72
[2020-12-29] MEDS ORDERED: ENOXAPARIN SOD 40 MG/0.4 ML SYRINGE SC SCH (10:00)
[2020-12-29] MEDS: DOCUSATE SOD 100 MG CAP PO SCH (10:15)
[2020-12-29] MEDS: DULoxetine HCL 30 MG CAP PO SCH (10:15)
[2020-12-29] MEDS: TAMSULOSIN HYDROCHLORIDE 0.4 MG CAP PO SCH (10:16)
[2020-12-29] MEDS: FINASTERIDE 5 MG TAB PO SCH (10:17)
[2020-12-29] MEDS ORDERED: DUTA0.5C11 PO (12:07)
[2020-12-29] MEDS ORDERED: CIPR-173 PO (12:07)
[2020-12-29 12:32] VITALS: BP 112/73
[2020-12-29 12:44] VITALS: BP 112/73
[2020-12-29 13:09] VITALS: BP 112/72
== END 2020-12-29 13:52 | DRG 699 ==
LOC: ER 15:49 → EEVIPCON 15:49 → TELE 22:47 → WEST WING 12-19 02:46
PROVIDERS: ADMIT Internal Medicine; ATTEND Internal Medicine
PROC: 0T2BX0Z Change Drainage Device in Bladder, External Approach (ICD-10-PCS; principal; 2020-12-18)
DX: T83.511A Infection and inflammatory reaction due to indwelling urethral catheter, initial encounter (principal); N30.01 Acute cystitis with hematuria; C22.0 Liver cell carcinoma; C79.51 Secondary malignant neoplasm of bone; N13.8 Other obstructive and reflux uropathy; Z20.822 Contact with and (suspected) exposure to COVID-19; C62.90 Malignant neoplasm of unspecified testis, unspecified whether descended or undescended; N40.1 Benign prostatic hyperplasia with lower urinary tract symptoms; N34.2 Other urethritis; F17.200 Nicotine dependence, unspecified, uncomplicated; F32.9 Major depressive disorder, single episode, unspecified; F41.9 Anxiety disorder, unspecified; K74.60 Unspecified cirrhosis of liver; R33.8 Other retention of urine; B19.20 Unspecified viral hepatitis C without hepatic coma; G89.29 Other chronic pain; M19.90 Unspecified osteoarthritis, unspecified site; N39.498 Other specified urinary incontinence; Y83.8 Other surgical procedures as the cause of abnormal reaction of the patient, or of later complication, without mention of misadventure at the time of the procedure; B96.5 Pseudomonas (aeruginosa) (mallei) (pseudomallei) as the cause of diseases classified elsewhere; Z85.05 Personal history of malignant neoplasm of liver; Z85.47 Personal history of malignant neoplasm of testis; Z79.899 Other long term (current) drug therapy; Y92.89 Other specified places as the place of occurrence of the external cause
CPT/HCPCS: 36415; 71045; 74176; 76870; 80053; 81001; 83735; 85025; 85610; 85730; 87040; 87081; 87086; 87088; 87186; 87426; 96361; 96365; G0378; J0696; J2185; J2543